=== PATIENT | female | born 1975 | race Caucasian/White ===

== ENCOUNTER 2018-09-08 11:26 | Outpatient (CLI) | payer OTHER ==
--- NOTE | 2018-09-08 11:51 | MMO ---
Bilateral MAMMO Bilat Screen [facility]. CLINICAL HISTORY: Patient is 43 years old and is seen for screening. The patient has the following family history of breast cancer: paternal grandmother. The patient has no personal history of cancer. VIEWS: The views performed were: bilateral craniocaudal with tomosynthesis and bilateral mediolateral oblique with tomosynthesis. MAMMOGRAM FINDINGS: There are scattered fibroglandular densities. There are no suspicious masses, suspicious calcifications, or new areas of architectural distortion. IMPRESSION: THERE IS NO MAMMOGRAPHIC EVIDENCE OF MALIGNANCY. A ROUTINE FOLLOW-UP MAMMOGRAM IN 1 YEAR IS RECOMMENDED. THE RESULTS OF THIS EXAM WERE SENT TO THE PATIENT. ACR BI-RADS Category 1 - Negative MAMMOGRAPHY NOTE: 1. A negative mammogram report should not delay a biopsy if a dominant of clinically suspicious mass is present. 2. Approximately 10% to 15% of breast cancers are not detected by mammography. 3. Adenosis and dense breasts may obscure an underlying neoplasm. Reported by: Yamileth MUNGUIA Electonically Signed: [id number]
== END 2018-09-08 11:27 | disposition home or self-care (01) ==
LOC: BICMAMMO 11:26
PROVIDERS: ATTEND Family Medicine
DX: Z12.31 Encounter for screening mammogram for malignant neoplasm of breast (principal); Z80.3 Family history of malignant neoplasm of breast
CPT/HCPCS: 77063; 77067

== ENCOUNTER 2019-08-28 15:00 | Outpatient (CLI) | payer BC ==
--- NOTE | 2019-08-28 15:30 | ULT ---
US Thyroid STANDARD History: Thyromegaly Comparison: None. Findings: Real-time grayscale and color evaluation of the thyroid was performed. The thyroid is enlarged. The isthmus measures 6 mm in AP dimension. Right lobe measures 4.7 x 1.6 x 1.4 cm and the left lobe measures 4.9 x 2.1 x 1.8 cm. No abnormal thyroid nodule. There are strands of fibrosis within the thyroid. Mild increased vascular ity. Impression: 1. No abnormal thyroid nodule. 2. Enlarged hypoechoic slightly hypervascular thyroid with internal strands of fibrosis can be seen w ith Jhoana's thyroiditis.
--- NOTE | 2019-08-28 16:06 | RAD ---
EXAM: THORACIC SPINE THREE VIEWS: 08/28/19 HISTORY: Neck and mid back pain for one month. No history of trauma. Multilevel disc osteophytosis changes. No evidence for acute fracture, dislocation, or malalignment. No focal bone lesion. IMPRESSION: Thoracic spondylosis. POS: RRE
--- NOTE | 2019-08-28 16:09 | RAD ---
CERVICAL SPINE THREE VIEWS: 08/28/19 HISTORY: Neck and mid back pain. No history of trauma. There is some flexion of the cervical spine. C1 and C2 odontoid are partially obscured on the AP ope n mouth view. There are multilevel disc osteophytosis and facet arthrosis changes. No prevertebral so ft tissue swelling. IMPRESSION: Moderate cervical spine flexion. Cervical spondylosis. Cervical spondylosis. POS: RRE
== END 2019-08-28 15:01 | disposition home or self-care (01) ==
LOC: SCSULT 15:00
PROVIDERS: ATTEND Family Medicine
DX: E01.0 Iodine-deficiency related diffuse (endemic) goiter (principal); M54.5 Low back pain; M54.6 Pain in thoracic spine; M47.812 Spondylosis without myelopathy or radiculopathy, cervical region; M47.814 Spondylosis without myelopathy or radiculopathy, thoracic region; E04.9 Nontoxic goiter, unspecified
CPT/HCPCS: 72040; 72072; 76536

== ENCOUNTER 2022-09-17 18:00 | Outpatient (CLI) | payer BC | END 2022-09-17 18:01 | disposition home or self-care (01) | LOC: SLEEPLAB 18:00 | PROVIDERS: ATTEND Family Medicine | DX: G47.33 Obstructive sleep apnea (adult) (pediatric) (principal); E66.9 Obesity, unspecified; R06.83 Snoring | CPT/HCPCS: 95800 ==

== ENCOUNTER 2023-09-05 13:21 | Outpatient (CLI) | payer BC | END 2023-09-05 13:22 | disposition home or self-care (01) | LOC: BICMAMMO 13:21 | PROVIDERS: ATTEND Family Medicine | DX: Z12.31 Encounter for screening mammogram for malignant neoplasm of breast (principal); N64.89 Other specified disorders of breast; Z80.3 Family history of malignant neoplasm of breast | CPT/HCPCS: 77063; 77067 ==